=== PATIENT | female | born 1945 | race Caucasian/White ===

== ENCOUNTER → 2017-09-14 | Outpatient (CLI) | payer MEDICARE ==
--- NOTE | 2017-09-14 15:39 | RAD ---
3 view thoracic spine study History: Mid back pain after trying indicate someone falling down 4 days ago. Findings: Mild dextroscoliosis is seen. The AP projection, there is concavity superior endplate of T7 which may represent a mild compression fracture here. This is age indeterminate. No discitis or osteolytic process is evident. Mild degenerative endplate spurring is seen throughout the thoracic spine. IMPRESSION: Mild compression fracture of the superior endplate of T7 of indeterminate age.
== END | disposition home or self-care (01) ==
LOC: RAD 10:45
PROVIDERS: ATTEND Family Medicine
DX: M48.54XA Collapsed vertebra, not elsewhere classified, thoracic region, initial encounter for fracture (principal)
CPT/HCPCS: 72072

== ENCOUNTER → 2018-05-09 | Outpatient (CLI) | payer MEDICARE ==
--- NOTE | 2018-05-09 14:21 | RAD ---
MRI Brain without contrast History: Memory loss Technique: Multiplanar, multisequential noncontrast MR imaging was performed of the brain. Contrast: None Comparison: None Findings: There is no evidence of recent infarct or cytotoxic edema. Ventricular size is within normal limits. There is mild generalized supratentorial involutional change.There is no significant midline shift, intraaxial mass effect, or focal abnormal extra-axial fluid collection. There is mild T2 and FLAIR hyperintense signal abnormality of the supratentorial periventricular white matter bilaterally, also a few scattered small foci in the deep white matter. There is preservation of the major intracranial flow-voids at the skull base. The mastoid air cells are aerated. The cerebellar tonsils are normal in location. There is no significant abnormality of the pineal gland or pituitary gland. There is mild bilateral ethmoid air cell mucosal thickening. There is preserved marrow signal of the clivus. Impression: 1. Mild T2 and FLAIR hyperintense abnormality of the supratentorial white matter is probably due to chronic microvascular ischemic disease in a patient this age. There is mild generalized supratentorial involutional change. There is no evidence of recent infarct or intracranial mass effect. Electronically signed by: Everette Bangura MD (05/09/2018 2:18 PM) [id number]
== END | disposition home or self-care (01) ==
LOC: MRI 12:54
PROVIDERS: ATTEND Nurse Practitioner Gerontology
DX: J34.89 Other specified disorders of nose and nasal sinuses (principal)
CPT/HCPCS: 70551

== ENCOUNTER → 2020-12-30 | Outpatient (CLI) | payer MEDICARE ==
--- NOTE | 2020-12-31 12:08 | SLEEP ---
DATE OF STUDY: 12/30/2020 SLEEP STUDY ATTENDING PHYSICIAN: Graham Kramer MD The patient is 75 years old who weighs 136 pounds with a BMI of 23. The patient's [place] score was 10. The patient underwent split night study performed at [facility]. During the night study, the patient spent 414 minutes in bed and slept for 284 minutes with a sleep efficiency of 69%. Sleep latency was 33 minutes with a REM latency of 287 minutes. Sleep architecture showed increased stage 1 and stage 2 sleep, increased slow wave and reduced REM sleep which was only 2% of total sleep time. During the initial diagnostic portion of the study, the patient slept for 79 minutes. During that time, there were no obstructive apneas, 4 mixed apneas, 1 central apnea and 25 hypopneas. The patient's AHI was 23 per hour. Supine AHI 23 per hour as well. No REM sleep was observed. EKG monitoring revealed normal sinus rhythm, average heart rate 59 beats per minute. No arrhythmias observed. Nocturnal oximetry study revealed mean oxygen saturation 94% with the lowest of 83%. A 24% of time oxygen saturation remained between 80% and 89%. No PLMs observed. The patient was started on CPAP at 5 cm water and titrated up to 11 cm water. At the final pressure, the patient slept for 44 minutes. The patient had supine and REM sleep. The patient's AHI was reduced to 0 per hour and oxygen saturation remained above 93%. IMPRESSION: 1. Moderate obstructive sleep apnea at an AHI of 23 per hour. Absence of REM sleep can underestimate the severity of sleep apnea. 2. Nocturnal hypoxia secondary to obstructive sleep apnea, but resolved with CPAP. 3. No PLMs. RECOMMENDATIONS: 1. CPAP at 11 cm water completely eliminated the patient's sleep apnea and should be used on a nightly basis. 2. Follow up in 4-6 weeks to assess compliance with CPAP and to document clinical improvement. 3. Avoid [employer] depressants. 4. Cautioned regarding driving until symptoms of sleep apnea resolve with the use of CPAP. ZULMA PAEZ MD DR: RAQUEL/gabriel JOB#: [id number] / [id number] GRAHAM Monreal MD
== END ==
LOC: SLPLAB 18:53
PROVIDERS: ATTEND Family Medicine
DX: G47.33 Obstructive sleep apnea (adult) (pediatric) (principal); R06.83 Snoring; R09.02 Hypoxemia
CPT/HCPCS: 95810

== ENCOUNTER → 2021-02-02 | Outpatient (CLI) | payer MEDICARE ==
--- NOTE | 2021-02-02 17:16 | RAD ---
EXAM: Bilateral screening mammogram. HISTORY: 75-year-old female presents for screening mammography. TECHNIQUE: Full-field digital craniocaudal and mediolateral oblique views of both breasts are obtaine d for evaluation. Computer aided detection was applied. COMPARISON: The patient is unsure of the date or location of prior mammograms. This exam serves as a new baseline mammogram. BREAST PARENCHYMAL DENSITY: Level C - Heterogeneously dense. FINDINGS: There is a cluster of indeterminate microcalcifications within the posterior 9:00 position of the right breast. There are additional coarse benign microcystic calcifications within the superfi cial anterior 11:00 position of the right breast. There are punctatescattered benign calcifications e lsewhere within both breasts. There is no mass or architectural distortion. IMPRESSION: BI-RADS Category 0: Incomplete. Additional imaging needed. RECOMMENDATION: Further evaluation with spot magnification views and a true lateral view of the right breast to assess microcystic calcifications at the 11:00 position is recommended. If your mammogram demonstrates that you have dense breast tissue, which could hide abnormalities, and if you have other risk factors for breast cancer that have been identified, you might benefit from s upplemental screening tests that may be suggested by your ordering physician. Dense breast tissue, i n and of itself, is a relatively common condition. This information is not provided to cause undue c oncern, but rather to raise your awareness and to promote discussion with your physician regarding th e presence of other risk factors, in addition to dense breast tissue. A report of your mammography re sults will be sent to you and your physician. You should contact your physician if you have any ques tions or concerns regarding this report. Mammography is a sensitive method for finding small breast cancers, but it does not detect them all a nd is not a substitute for careful clinical examination. A negative mammogram does not negate a clin ically suspicious finding and should not result in delay in biopsying a clinically suspicious abnorma lity. PQRS compliance statement - Patient information was entered into a reminder system with a target due date for the next mammogram. "Our facility is accredited by the [employer]." Electronically signed by: Argentina Julian MD (02/02/2021 5:13 PM) [id number]
== END ==
LOC: MAMMO 15:08
PROVIDERS: ATTEND Family Medicine
DX: Z12.31 Encounter for screening mammogram for malignant neoplasm of breast (principal)
CPT/HCPCS: 77067

== ENCOUNTER → 2021-02-17 | Outpatient (CLI) | payer MEDICARE ==
--- NOTE | 2021-02-17 17:51 | RAD ---
EXAMINATION: MG DIAGNOSTICUNILAT MAMMO History: Recalled from screening mammogram for right breast calcifications Comparison: Screening mammogram 02/02/2021. Technique: Right breast CC and MLO magnification views and full field MLO view were obtained. Findings: Breast Tissue Density B : There are scattered areas of fibroglandular density. The calcifications at 9:00 in the right breast at posterior depth layer on ML view consistent with mi lk of calcium. IMPRESSION: Benign right breast calcifications at 9:00 posterior depth. BI-RADS category 2: Benign. Recommend annual screening mammogram. Mammography is the most sensitive method for finding small breast cancers, but it does not detect the m all and is not a substitute for careful clinical examination. A negative mammogram does not negate a clinically suspicious finding and should not result in delay in biopsying a clinically suspicious a bnormality. "Our facility is accredited by the [employer] Mamm[employer]." Patient information is entered into the reminder system with a target due date for the next screening mammogram. Electronically signed by: Fauzia Lui MD (02/17/2021 5:49 PM) [place] [id number]
== END ==
LOC: MAMMO 09:57
PROVIDERS: ATTEND Family Medicine
DX: R92.1 Mammographic calcification found on diagnostic imaging of breast (principal)
CPT/HCPCS: 77065